=== PATIENT | male | born 1990 | race African-American/Black ===

== ENCOUNTER 2019-10-29 06:44 | Emergency (ER) | payer OTHER ==
[~2019-10-29] VITALS: Ht 170.2 cm; Wt 112.9 kg
[2019-10-29 06:57] VITALS: Ht 170.2 cm; Wt 112.9 kg
[2019-10-29 07:48] LABS: microscopic required? NO
[2019-10-29 07:54] LABS: PLATELET COUNT 195 x10^3mcL (130-400); RED CELL DISTRIBUTION WIDTH 12.9 % (11.5-14.5)
[2019-10-29 07:57] LABS: UA SPECIFIC GRAVITY 1.025 (1.005-1.035); urine erythrocyte NEGATIVE (NEGATIVE)
[2019-10-29 08:12] LABS: CALCIUM 9.4 mg/dL (8.5-10.1); CARBON DIOXIDE 28.8 mmol/L (21-32); CHLORIDE SERUM 105 mmol/L (98-107); CREATININE SERUM 1.3 mg/dL (0.7-1.3); GFR1 > 60 mL/min; GLUCOSE SERUM 82 mg/dL (74-106); SODIUM SERUM 139 mmol/L (136-145)
[2019-10-29 08:38] LABS: AMPHETAMINE QUAL UR NONE DETECTED (See below)
[2019-10-29 09:08] VITALS: BP 147/93
== END 2019-10-29 09:05 | disposition home or self-care (01) ==
LOC: ED 06:44
PROVIDERS: Emergency Medicine
DX: R51 Headache (principal); R03.0 Elevated blood-pressure reading, without diagnosis of hypertension
CPT/HCPCS: G0480; J1885